=== PATIENT | male | born 1955 | race Caucasian/White ===

== ENCOUNTER 2024-03-23 10:12 | Day surgery (SDC) | payer BC, MEDICARE ==
[~2024-03-23] VITALS: Ht 177.8 cm; Wt 107.3 kg
[2024-03-23] VITALS (10 sets, daily range): BP systolic 111–137; BP diastolic 67–88; PULSE 62–80; RESP 10–16; TEMP 99.1; O2SAT 94–100
[2024-03-23] MEDS ORDERED: AMI200T PO (10:58)
[2024-03-23] MEDS ORDERED: APIX5TAB3 PO (10:58)
[2024-03-23] MEDS ORDERED: FERR325T28 PO (10:58)
[2024-03-23] MEDS ORDERED: PANT-47 PO (10:58)
[2024-03-23] MEDS ORDERED: FLO0.4C PO (10:58)
[2024-03-23 11:32] LABS: APTT 28 SECONDS (22-32); INR 1.1 INR; PROTHROMBIN TIME 11.4 SECONDS (9.0-12.0)
[2024-03-23 11:33] LABS: EOSINOPHILS % (AUTO) 0.4 % (0-6); MEAN CORPUSCULAR HEMOGLOBIN 31.4 PG (27.0-31.0); NEUTROPHILS # (AUTO) 4.2 X10'3 (1.8-7.7)
[2024-03-23 11:34] LABS: BASOPHILS % (AUTO) 0.3 % (0-1); HEMATOCRIT 38.9 % (42.0-52.0); HEMOGLOBIN 12.8 g/dl (14.0-17.9); LYMPHOCYTES % (AUTO) 43.3 % (21-51); MEAN CORPUSCULAR HGB CONC 32.9 g/dL (33.0-36.5); MEAN CORPUSCULAR VOLUME 95.4 FL (78-98); MONOCYTES # (AUTO) 0.9 X10'3 (0-0.9); MONOCYTES % (AUTO) 9.5 % (2-12); NEUTROPHILS % (AUTO) 46.5 % (42-75); PLATELET COUNT 184 X10'3 (140-440); RED BLOOD COUNT 4.07 X10'6 (4.70-6.10); RED CELL DISTRIBUTION WIDTH 15.3 % (11.5-14.5); WHITE BLOOD COUNT 9.1 X10'3 (4.5-11.0)
[2024-03-23 11:36] LABS: ALBUMIN 3.6 G/DL (3.4-5.0); ANION GAP 12 (8-16); BLOOD UREA NITROGEN 15 MG/DL (7-18); BUN/CREATININE RATIO 14.9 (10.0-20.0); CALCIUM 8.4 MG/DL (8.5-10.1); CHLORIDE 108 MMOL/L (99-107); CREATININE 1.01 MG/DL (0.60-1.10); GLUCOSE 95 MG/DL (70-104); POTASSIUM 4.1 MMOL/L (3.5-5.1); SODIUM 141 MMOL/L (135-145); TOTAL CARBON DIOXIDE 21.4 MMOL/L (24-32); eCRCL 73 ML/MIN; eGFR 74 ML/MIN
[2024-03-23 12:35] LABS: PLATELET ESTIMATE NORMAL; TOTAL CELLS COUNTED 100
[2024-03-23] MEDS: MIDAZolam 1mg/ml 10ml vial IV ONE (13:32)
[2024-03-23] MEDS: fentaNYL/PF 50MCG/1 ML 2ML syringe IV ONE (13:32)
[2024-03-23] MEDS: normal saline 1000ml 1,000 ML IV SCH (13:32)
== END 2024-03-23 14:50 | disposition home or self-care (01) ==
LOC: SSTAY O 10:12
PROVIDERS: ATTEND Student in an Organized Health Care Education/Training Program
DX: I48.91 Unspecified atrial fibrillation (principal); E11.9 Type 2 diabetes mellitus without complications; I25.2 Old myocardial infarction; K21.9 Gastro-esophageal reflux disease without esophagitis; Z79.01 Long term (current) use of anticoagulants; Z79.899 Other long term (current) drug therapy; Z82.49 Family history of ischemic heart disease and other diseases of the circulatory system; Z83.3 Family history of diabetes mellitus
CPT/HCPCS: 36415; 80048; 85025; 85610; 85730; 92960; 93005; J2250; J3010; J7030; 85007